=== PATIENT | female | born 1995 | race Caucasian/White ===

== ENCOUNTER 2017-06-27 20:45 | Emergency (ER) | payer SELFPAY ==
[~2017-06-27] VITALS: Ht 160 cm; Wt 63.5 kg
[2017-06-27 21:09] VITALS: BP 114/73
--- NOTE | 2017-06-27 21:09 | NUR ---
BB FAMILY; RIGHT HAND PAIN S/P "HITTING HAND ON SLIDE" PT AOX4 RR EVEN AND UNLABORED. NO SOB NOTED. NAD NOTED. NO NVD AT THIS TIME. PT WAITING FOR MD MIN.
--- NOTE | 2017-06-27 21:11 | NUR ---
PAC JOSÉ MIGUEL AT BEDSIDE FOR EVAL.
--- NOTE | 2017-06-27 21:28 | NUR ---
WAIVER SIGNED BY PT. INFORMED RADIOLOGY
--- NOTE | 2017-06-27 21:39 | NUR ---
RADIOLOGY AT BEDSIDE FOR XRAY.
== END 2017-06-27 22:24 | disposition home or self-care (01) ==
LOC: ER 20:48
DX: S62.300A Unspecified fracture of second metacarpal bone, right hand, initial encounter for closed fracture (principal); W22.8XXA Striking against or struck by other objects, initial encounter; Y93.89 Activity, other specified; Y92.89 Other specified places as the place of occurrence of the external cause; Y99.9 Unspecified external cause status
CPT/HCPCS: 73130-TC; A4606; Z7610